=== PATIENT | male | born 1945 | race Two or more races ===

== ENCOUNTER 2018-06-22 13:00 | Emergency (ER) | payer OTHER ==
[~2018-06-22] VITALS: Ht 162.6 cm; Wt 74.4 kg
[~2018-06-22 13:00] MED LIST: PROP60CA34 PO; Pantoprazole Sodium Sesquihydr PO
[2018-06-22] MEDS ORDERED: PANTOPRAZOLE 40 MG/10 ML VIAL IV ONE (13:30)
[2018-06-22 16:10] LABS: Basophils # (auto) 0 uL; Basophils % (auto) 0.3 % (0.0-2.0); Eosinophils # (auto) 0 uL; Hemoglobin 12.1 g/dL (13.5-17.5); Lymphocytes # (auto) 0.4 uL; Monocytes # (auto) 0.7 uL
[2018-06-22 16:12] LABS: Eosinophils % (auto) 0.6 % (0.0-7.0); Hematocrit 35.6 % (41.0-53.0); Lymphocytes % (auto) 8.3 % (10.0-50.0); Mean Corpuscular Hemoglobin 31.4 pg (28.0-32.0); Mean Corpuscular Hgb Conc. 33.9 g/dL (32.0-36.0); Mean Corpuscular Volume 92.6 fL (80.0-100.0); Monocytes % (auto) 14.1 % (0.0-12.0); Neutrophils # (auto) 3.8 uL; Neutrophils % (auto) 76.7 % (37.0-80.0); Nucleated Red Blood Cells % 0.2 %; Red Blood Cells 3.84 10^6/uL (4.5-5.90)
[2018-06-22 16:20] LABS: Albumin 2.5 g/dL (3.4-5.0); Calcium 7.8 mg/dL (8.5-10.1); Potassium 4.7 mmol/L (3.5-5.1)
[2018-06-22 16:23] LABS: BUN/Creatinine Ratio 13.5; Bilirubin, Total 1.5 mg/dL (0.2-1.0); INR 1.27 (0.9-1.15); Partial Thromboplastin Time 28.2 sec (23.78-33.04); Prothrombin Time 13.4 sec (9.27-12.13); Total Protein 7.2 g/dL (6.4-8.2)
[2018-06-22 17:03] LABS: Platelet Count (auto) 52 10^3/uL (140-450)
[2018-06-22 22:25] VITALS: BP 109/69
== END 2018-06-22 22:48 | disposition short-term general hospital (02) ==
LOC: EDBD 13:00 → ER 13:00
DX: K92.2 Gastrointestinal hemorrhage, unspecified (principal); D50.0 Iron deficiency anemia secondary to blood loss (chronic); E11.9 Type 2 diabetes mellitus without complications; K21.9 Gastro-esophageal reflux disease without esophagitis; E78.5 Hyperlipidemia, unspecified; I10 Essential (primary) hypertension
CPT/HCPCS: 36415; 74176; 80053; 83690; 85025; 85610; 85730; 86850; 86900; 86901; 94761; 96374; 99285; C9113; 93005